=== PATIENT | female | born 1945 | race Caucasian/White ===

== ENCOUNTER → 2016-12-12 | Day surgery (SDC) | payer OTHER ==
[2016-12-11 12:36] LABS: BASOPHILS # (AUTO) 0.1 (0.0-0.1); BASOPHILS % 0.6 % (0.0-1.0); EOSINOPHILS # (AUTO) 0.1 (0.0-0.4); EOSINOPHILS % 0.6 % (0.0-6.0); HEMATOCRIT 42.6 % (34.2-44.1); HEMOGLOBIN 14.3 g/dL (12.0-16.0); LYMPHOCYTES % 22.7 % (18.0-39.1); MEAN CORPUSCULAR HEMOGLOBIN 28.5 pg (28-32); MEAN CORPUSCULAR HGB CONC 33.6 g/dL (31-35); MONOCYTES # (AUTO) 0.6 (0.2-0.8); MONOCYTES % 6.5 % (4.4-11.3); NEUTROPHILS # (AUTO) 6.2 (2.1-6.9); NEUTROPHILS % 69.3 % (38.7-80.0); PLATELET COUNT 334 x10e3/uL (140-360); RED BLOOD COUNT 5.01 x10e6/uL (3.6-5.1); RED CELL DISTRIBUTION WIDTH 15.7 % (11.7-14.4)
[~2016-12-12] MED LIST: AMLODIPINE BESY10 MG PO; HYDROCHLOROTHIA25 MG PO; LEVOTHYROXINE50 MCG PO; MONTELUKAST SOD10 MG PO; PROPOFOL IV EMULSION 10 MG/ML 50 ML VIAL ONE; SERTRALINE HCL100 MG PO
== END | disposition home or self-care (01) ==
LOC: OR 06:17
PROVIDERS: ATTEND Internal Medicine Gastroenterology
DX: K21.0 Gastro-esophageal reflux disease with esophagitis (principal); K29.50 Unspecified chronic gastritis without bleeding; K44.9 Diaphragmatic hernia without obstruction or gangrene; K58.9 Irritable bowel syndrome, unspecified; I10 Essential (primary) hypertension; J84.9 Interstitial pulmonary disease, unspecified; E66.9 Obesity, unspecified; F32.9 Major depressive disorder, single episode, unspecified; Z68.31 Body mass index [BMI] 31.0-31.9, adult; Z01.810 Encounter for preprocedural cardiovascular examination; Z01.812 Encounter for preprocedural laboratory examination; Z87.891 Personal history of nicotine dependence
CPT/HCPCS: 36415; 43239; 85025; 93005

== ENCOUNTER 2017-11-20 12:40 | Inpatient (IN) | payer OTHER ==
[~2017-11-20] VITALS: Ht 157.5 cm; Wt 81.8 kg
[~2017-11-20 12:40] MED LIST changes: -PROPOFOL IV EMULSION 10 MG/ML 50 ML VIAL ONE
--- NOTE | 2017-11-20 14:20 | Diagnostic Imaging Report ---
EXAM: XR CHEST 2 VIEWS DATE: 11/20/2017 1:11 PM INDICATION: Weakness, possible pneumonia COMPARISON: None FINDINGS: Lines and Tubes: None Heart and Mediastinum: Accentuated by low lung volumes. Lungs and Pleura: Low lung volumes, body habitus, and underpenetration limit evaluation. Scattered bilateral airspace opacities are present, most notably left mid/lower lung. Bones and Soft Tissues: Cholecystectomy clips. Cervical orthopedic hardware. IMPRESSION: 1. Suboptimal exam as above. 2. Scattered airspace opacities bilaterally, most focally noted in the left mid and lower lung. Findings likely represent multifocal pneumonia given history. Close radiographic follow-up recommended. Signed by: Dr. Danilo Gamboa MD on 11/20/2017 2:17 PM
[2017-11-20] MEDS ORDERED: ASPIRIN 81 MG CHEW TAB PO ONE (15:45)
[2017-11-20] MEDS ORDERED: VANCOMYCIN HCL 1GM/NS 250 ML BAG IV SCH (15:45)
[2017-11-20 16:08] LABS: BASOPHILS % 0.4 % (0.0-1.0); EOSINOPHILS # (AUTO) 0.3 (0.0-0.4); EOSINOPHILS % 2.2 % (0.0-6.0); HEMATOCRIT 37.3 % (34.2-44.1); HEMOGLOBIN 13.1 g/dL (12.0-16.0); LYMPHOCYTES % 17.5 % (18.0-39.1); MEAN CORPUSCULAR HEMOGLOBIN 29.9 pg (28-32); MEAN CORPUSCULAR HGB CONC 35.1 g/dL (31-35); MEAN CORPUSCULAR VOLUME 85.2 fL (81-99); MONOCYTES # (AUTO) 0.9 (0.2-0.8); MONOCYTES % 8.1 % (4.4-11.3); NEUTROPHILS % 71.4 % (38.7-80.0); PLATELET COUNT 348 x10e3/uL (140-360); RED BLOOD COUNT 4.38 x10e6/uL (3.6-5.1); RED CELL DISTRIBUTION WIDTH 14.3 % (11.7-14.4)
[2017-11-20 16:35] LABS: ALANINE AMINOTRANSFERASE 53 IU/L (0-55); ALBUMIN 4.1 g/dL (3.5-5.0); ALKALINE PHOSPHATASE 96 IU/L (40-150); ANION GAP 16.5 mmol/L (8-16); BLOOD UREA NITROGEN 9 mg/dL (7-26); BUN/CREATININE RATIO 14 (6-25); CALCIUM 9.8 mg/dL (8.4-10.2); CARBON DIOXIDE 30 mmol/L (22-29); CHLORIDE 89 mmol/L (98-107); CREATINE KINASE 285 IU/L (29-168); CREATININE, SERUM 0.66 mg/dL (0.57-1.11); EST GLOMERULAR FILTRATION RATE > 60 ML/MIN (60-); GLUCOSE 107 mg/dL (74-118); SODIUM 133 mmol/L (136-145)
[2017-11-20] MEDS: CEFEPIME HCL 1 GM VIAL IV SCH (16:41)
[2017-11-20] MEDS: VANCOMYCIN 1GM/NS 250 ML 250 ML IV SCH (16:41)
[2017-11-20 16:45] LABS: INR 0.9
[2017-11-20 16:46] LABS: PARTIAL THROMBOPLASTIN TIME 30.1 seconds (23.8-35.5)
[2017-11-20 16:51] LABS: POTASSIUM 2.5 mmol/L (3.5-5.1)
[2017-11-20] MEDS ORDERED: POTASSIUM CHLORIDE 20 MEQ TAB CR PO ONE (17:00)
[2017-11-20] MEDS ORDERED: POTASSIUM CHLORIDE 20MEQ/100ML 100 ML IV ONE ×2 (17:00→18:00)
[2017-11-20 17:10] LABS: BILIRUBIN,URINE 1+ (NEGATIVE); CLARITY,URINE HAZY (CLEAR); COLOR,URINE YELLOW (YELLOW); KETONES,URINE 1+ (NEGATIVE); LEUKOCYTE ESTERASE ,URINE 1+ (NEGATIVE); NITRITE,URINE NEGATIVE (NEGATIVE); PROTEIN,URINE DIPSTICK 1+ (NEGATIVE); URINE UROBILINOGEN 0.2 mg/dL (0.2 - 1)
[2017-11-20 17:11] LABS: BACTERIA,URINE MANY /HPF; EPITHELIAL CELLS,URINE FEW /LPF; TRANSITIONAL EPI CELLS,URINE FEW
[2017-11-20] MEDS: SODIUM CHLORIDE 0.9% 1000ML 1,000 ML IV SCH (18:31)
[2017-11-20 23:57] LABS: CREATINE KINASE 208 IU/L (29-168)
[2017-11-21] VITALS (8 sets, daily range): BP systolic 111–142; BP diastolic 53–71
[2017-11-21] MEDS: CEFEPIME HCL 1 GM VIAL IV SCH ×2 (04:48→15:41)
[2017-11-21] MEDS: SODIUM CHLORIDE 0.9% 1000ML 1,000 ML IV SCH (07:35)
[2017-11-21 07:48] LABS: ALANINE AMINOTRANSFERASE 34 IU/L (0-55); ALKALINE PHOSPHATASE 70 IU/L (40-150); ANION GAP 11.3 mmol/L (8-16); BLOOD UREA NITROGEN 7 mg/dL (7-26); BUN/CREATININE RATIO 13 (6-25); CALCIUM 8.5 mg/dL (8.4-10.2); CARBON DIOXIDE 27 mmol/L (22-29); CHLORIDE 99 mmol/L (98-107); CREATININE, SERUM 0.52 mg/dL (0.57-1.11); EST GLOMERULAR FILTRATION RATE > 60 ML/MIN (60-); GLUCOSE 100 mg/dL (74-118); POTASSIUM 3.3 mmol/L (3.5-5.1); SODIUM 134 mmol/L (136-145)
[2017-11-21 08:28] LABS: CREATINE KINASE 178 IU/L (29-168)
--- NOTE | 2017-11-21 12:49 | Diagnostic Imaging Report ---
EXAM: CT Chest without contrast 11/21/2017 11:24 AM INDICATION: Pulmonary fibrosis COMPARISON: Chest radiograph 11/20/17. TECHNIQUE: Chest was scanned utilizing a multidetector helical scanner from the lung apex through the level of the adrenal glands without administration of IV contrast. Coronal and sagittal reformations were obtained. Routine protocol was performed. IV CONTRAST: None. RADIATION DOSE: Total DLP: 397.5 mGy*cm Estimated effective dose: (DLP x 0.014 x size factor) mSv COMPLICATIONS: None FINDINGS: LINES/ TUBES: None. LUNGS AND AIRWAYS: The central airways are patent. There are bilateral extensive ground glass opacities, predominately peripherally, and most pronounced in the lower lobes, left greater than right. There is associated traction bronchiectasis. There is likely early honeycombing in the lingula. Overall lung volumes are low. Diffuse opacity limits evaluation for lung nodule. PLEURA: The pleural spaces are clear. HEART AND MEDIASTINUM: The thyroid gland is normal. Mildly prominent mediastinal lymph nodes measuring up to 1 cm short axis in the right paratracheal station, likely reactive. Scattered coronary and aortic atherosclerotic changes. UPPER ABDOMEN: Limited non-contrast views of the upper abdomen demonstrate diffuse fatty liver. Status post cholecystectomy. The spleen is unremarkable. BONES: No acute bony abnormality. SOFT TISSUES: Unremarkable. IMPRESSION: Bilateral lower lobe predominant ground glass opacities with associated traction bronchiectasis, and early honeycombing in the lingula. Findings are suggestive of interstitial lung disease, most likely fibrotic NSIP. Signed by: Dr. Laverne Bedoya MD on 11/21/2017 12:46 PM
--- NOTE | 2017-11-21 12:59 | Consultation ---
DATE OF CONSULTATION: November 21, 2017 PULMONARY CONSULTATION REASON FOR CONSULT: Well known patient to me for pulmonary fibrosis. HPI: Ms. Medellin is a 72-year-old female. She is my office patient for last 2 years. She has been diagnosed with idiopathic pulmonary fibrosis. I had an extensive workup including the autoimmune workup and other workup done. She was also referred for transplant evaluation and has been declined. Discussion was done with her about antifibrotic treatment with pirfenidone and nintedanib, and she declined that option as well. She is on home oxygen 5 liters round the clock. She was in her usual state of health up until a week ago when her suddenly in the home and since then she was feeling short of breath, but the night before the admission, she started having chills and fever, so she was brought into the emergency room. She denies any complaints of chest pain, nausea, vomiting. Her breathing is better. Fever and chills have resolved as well. Chest x-ray in the emergency room showed bilateral opacities and low lung volumes. REVIEW OF SYSTEMS GENERAL: Denies any fever or chills. HEAD: Denies any head trauma. ENT: Denies any earaches. CVS: Denies any chest pain. RESPIRATORY: Shortness of breath. GI: Denies any nausea or vomiting. The rest of the review of systems are negative except as in HPI. PAST MEDICAL HISTORY: Idiopathic pulmonary fibrosis, hypertension, and depression. PAST SURGICAL HISTORY: None. FAMILY AND SOCIAL HISTORY: Patient never smoked. She was living with her , now she is by herself. PHYSICAL EXAM VITAL SIGNS: Temperature 99.3, pulse is 68, blood pressure 130/60, respiratory rate of 18, O2 sat 98% on 4 liters nasal cannula. HEENT: Head atraumatic, normocephalic. NECK: Supple. CHEST: Few crackles on the bases, otherwise clear to auscultation. No wheezing. HEART: S1, S2 audible. ABDOMEN: Soft, nontender, and nondistended. EXTREMITIES: No clubbing, cyanosis, or edema. NEUROLOGICAL: She is awake and alert. Following commands. Responding to questions appropriately. Moving all 4 extremities. Strength 5/5 in both upper and lower extremities. LABS: White count of 11,000, hemoglobin 13.1, platelets 348. Chemistry; sodium 134, potassium 3.3, potassium was 2.5 yesterday, BUN 7, creatinine 0.5. CK was 178 and 208. ASSESSMENT: Ms. Medellin is a 72-year-old female. She is a well known patient to me. She has idiopathic pulmonary fibrosis, now seems like that she probably has superimposed pneumonia versus exacerbation of idiopathic pulmonary fibrosis. PLAN 1. I agree with cefepime and vancomycin. I will also start the patient on IV Solu-Medrol. 2. CT of the chest without contrast will be done as well. Physical therapy evaluation and treatment. Continue the patient on oxygen. Thank you for this consult. Job#: [id number] LPA
[2017-11-21] MEDS: METHYLPREDNISOLONE SOD SUCC 40 MG/ML VIAL IV SCH ×2 (15:41→22:25)
[2017-11-21] MEDS: VANCOMYCIN 1GM/NS 250 ML 250 ML IV SCH (15:59)
[2017-11-21] MEDS ORDERED: ALBUTEROL/IPRATROPIUM 3 ML NEB NEB ONE (16:15)
[2017-11-21] MEDS ORDERED: ACETYLCYSTEINE 200 MG/ML 4ML VIAL INH ONE (16:25)
[2017-11-21] MEDS ORDERED: ALPRAZOLAM 0.25 MG TAB PO ONE (16:45)
[2017-11-21] MEDS: ALBUTEROL/IPRATROPIUM 3 ML NEB NEB SCH (19:35)
[2017-11-21] MEDS: SERTRALINE HCL 100 MG TAB PO SCH (20:51)
[2017-11-22] VITALS (8 sets, daily range): BP systolic 134–158; BP diastolic 61–72
[2017-11-22] MEDS: ALBUTEROL/IPRATROPIUM 3 ML NEB NEB SCH ×4 (01:15→21:15)
[2017-11-22] MEDS: CEFEPIME HCL 1 GM VIAL IV SCH (03:43)
[2017-11-22] MEDS: METHYLPREDNISOLONE SOD SUCC 40 MG/ML VIAL IV SCH ×3 (05:42→22:00)
[2017-11-22] MEDS ORDERED: ACETAMINOPHEN 325 MG TAB PO PRN (10:45)
[2017-11-22] MEDS ORDERED: HYDROCODONE/APAP 5MG-325MG TAB PO PRN (10:45)
[2017-11-22] MEDS ORDERED: ALBUTEROL/IPRATROPIUM 3 ML NEB NEB PRN (10:45)
[2017-11-22] MEDS ORDERED: ONDANSETRON HCL INJ 2 MG/ML VIAL IV PRN (10:45)
[2017-11-22] MEDS ORDERED: MORPHINE SULFATE INJ 4 MG/ML INJ IV PRN (11:30)
[2017-11-22] MEDS: AZITHROMYCIN 500MG/NS 250 ML 250 ML IV SCH (12:00)
[2017-11-22] MEDS: PIPER-TAZ 3.375 GM 50 ML IV SCH ×2 (13:00→21:30)
[2017-11-22] MEDS: SENNOSIDES 8.6 MG TAB PO SCH (17:00)
[2017-11-22] MEDS: SERTRALINE HCL 100 MG TAB PO SCH (21:35)
[2017-11-23] VITALS (50 sets, daily range): BP systolic 112–176; BP diastolic 57–97
[2017-11-23] MEDS: ALBUTEROL/IPRATROPIUM 3 ML NEB NEB SCH ×4 (00:05→19:10)
[2017-11-23] MEDS: PIPER-TAZ 3.375 GM 50 ML IV SCH ×3 (03:44→20:07)
[2017-11-23] MEDS: METHYLPREDNISOLONE SOD SUCC 40 MG/ML VIAL IV SCH ×3 (05:54→21:54)
[2017-11-23] MEDS: ALPRAZOLAM 0.25 MG TAB PO PRN ×2 (05:54→16:10)
[2017-11-23 06:47] LABS: BASOPHILS % 0.1 % (0.0-1.0); HEMATOCRIT 34.1 % (34.2-44.1); HEMOGLOBIN 11.5 g/dL (12.0-16.0); LYMPHOCYTES # (AUTO) 0.5 (1.0-3.2); LYMPHOCYTES % 2.2 % (18.0-39.1); MEAN CORPUSCULAR HEMOGLOBIN 29.9 pg (28-32); MEAN CORPUSCULAR HGB CONC 33.7 g/dL (31-35); MEAN CORPUSCULAR VOLUME 88.6 fL (81-99); MONOCYTES # (AUTO) 1.1 (0.2-0.8); MONOCYTES % 5.2 % (4.4-11.3); PLATELET COUNT 338 x10e3/uL (140-360); RED BLOOD COUNT 3.85 x10e6/uL (3.6-5.1); RED CELL DISTRIBUTION WIDTH 14.8 % (11.7-14.4)
[2017-11-23 07:04] LABS: BLOOD UREA NITROGEN 12 mg/dL (7-26); BUN/CREATININE RATIO 20 (6-25); CALCIUM 9.2 mg/dL (8.4-10.2); CARBON DIOXIDE 26 mmol/L (22-29); CHLORIDE 103 mmol/L (98-107); EST GLOMERULAR FILTRATION RATE > 60 ML/MIN (60-); GLUCOSE 160 mg/dL (74-118); POTASSIUM 3.1 mmol/L (3.5-5.1)
[2017-11-23 07:14] LABS: ANION GAP 16.1 mmol/L (8-16)
[2017-11-23 07:15] LABS: SODIUM 142 mmol/L (136-145)
[2017-11-23] MEDS: MORPHINE SULFATE 2 MG/ML SYR IV PRN ×3 (07:20→21:27)
[2017-11-23 08:03] LABS: LYMPHOCYTES % (MANUAL) 9 % (19-48); MONOCYTES % (MANUAL) 7 % (3.4-9.0); NEUTROPHILS % (MANUAL) 84 % (40-74); PLATELET ESTIMATE ADEQUATE; PLATELET MORPHOLOGY COMMENT NORMAL; RBC MORPHOLOGY COMMENT NORMAL
[2017-11-23] MEDS: SENNOSIDES 8.6 MG TAB PO SCH ×2 (09:00→17:00)
[2017-11-23] MEDS ORDERED: DEXMEDETOMIDINE HCL 200 MCG in SODIUM CHLORIDE 0.9% 50ML 48 ML IV PRN (12:00)
[2017-11-23] MEDS ORDERED: DEXMEDETOMIDINE 200MCG/NS 50ML 50 ML IV PRN (12:30)
[2017-11-23] MEDS: AZITHROMYCIN 500MG/NS 250 ML 250 ML IV SCH (13:17)
[2017-11-23] MEDS: DEXMEDETOMIDINE 200MCG/NS 50ML 50 ML IV PRN ×2 (13:22→20:00)
[2017-11-23] MEDS: SOD CHL 0.45%/POT CHL 20MEQ 1,000 ML IV SCH (14:26)
[2017-11-23] MEDS: SERTRALINE HCL 100 MG TAB PO SCH (21:27)
[2017-11-24] VITALS (73 sets, daily range): BP systolic 92–194; BP diastolic 43–128
[2017-11-24] MEDS: DEXMEDETOMIDINE 200MCG/NS 50ML 50 ML IV PRN ×6 (00:32→22:10)
[2017-11-24] MEDS: ALPRAZOLAM 0.25 MG TAB PO PRN ×2 (01:24→07:24)
[2017-11-24] MEDS: SOD CHL 0.45%/POT CHL 20MEQ 1,000 ML IV SCH ×2 (01:27→11:47)
[2017-11-24] MEDS: ALBUTEROL/IPRATROPIUM 3 ML NEB NEB SCH ×4 (02:00→19:10)
[2017-11-24] MEDS: PIPER-TAZ 3.375 GM 50 ML IV SCH ×3 (04:28→20:03)
[2017-11-24 04:42] LABS: BASOPHILS % 0.1 % (0.0-1.0); HEMATOCRIT 32.3 % (34.2-44.1); HEMOGLOBIN 11.1 g/dL (12.0-16.0); LYMPHOCYTES # (AUTO) 0.7 (1.0-3.2); LYMPHOCYTES % 3.7 % (18.0-39.1); MEAN CORPUSCULAR HEMOGLOBIN 29.7 pg (28-32); MEAN CORPUSCULAR HGB CONC 34.4 g/dL (31-35); MEAN CORPUSCULAR VOLUME 86.4 fL (81-99); MONOCYTES % 5.3 % (4.4-11.3); NEUTROPHILS # (AUTO) 16.4 (2.1-6.9); NEUTROPHILS % 90.2 % (38.7-80.0); PLATELET COUNT 294 x10e3/uL (140-360); RED BLOOD COUNT 3.74 x10e6/uL (3.6-5.1); RED CELL DISTRIBUTION WIDTH 14.7 % (11.7-14.4)
[2017-11-24] MEDS: MORPHINE SULFATE 2 MG/ML SYR IV PRN ×3 (05:09→22:51)
[2017-11-24 05:13] LABS: ANION GAP 17.6 mmol/L (8-16); BLOOD UREA NITROGEN 16 mg/dL (7-26); BUN/CREATININE RATIO 27 (6-25); CARBON DIOXIDE 23 mmol/L (22-29); CHLORIDE 105 mmol/L (98-107); CREATININE, SERUM 0.59 mg/dL (0.57-1.11); EST GLOMERULAR FILTRATION RATE > 60 ML/MIN (60-); GLUCOSE 166 mg/dL (74-118); MAGNESIUM 2.3 MG/DL (1.3-2.1); PHOSPHORUS 1.8 MG/DL (2.3-4.7); POTASSIUM 3.6 mmol/L (3.5-5.1); SODIUM 142 mmol/L (136-145)
[2017-11-24] MEDS: METHYLPREDNISOLONE SOD SUCC 40 MG/ML VIAL IV SCH (05:43)
[2017-11-24] MEDS: SENNOSIDES 8.6 MG TAB PO SCH ×2 (08:08→14:49)
[2017-11-24] MEDS: LORAZEPAM INJ 2 MG/ML VIAL IV PRN ×2 (11:40→21:32)
[2017-11-24] MEDS: AZITHROMYCIN 500MG/NS 250 ML 250 ML IV SCH (11:47)
[2017-11-24] MEDS ORDERED: METHYLPREDNISOLONE SOD SUCC 40 MG/ML VIAL IV SCH (21:00)
[2017-11-24] MEDS ORDERED: HEPARIN SOD (PORCINE) 5,000 UNIT/ML VIAL SC SCH (21:00)
[2017-11-24] MEDS: SERTRALINE HCL 100 MG TAB PO SCH (21:00)
[2017-11-25 00:20] VITALS: BP 118/96
[2017-11-25] MEDS: ALBUTEROL/IPRATROPIUM 3 ML NEB NEB SCH (01:00)
[2017-11-25 01:12] VITALS: BP 132/96
[2017-11-25] MEDS: DEXMEDETOMIDINE 200MCG/NS 50ML 50 ML IV PRN (01:18)
[2017-11-25 01:20] VITALS: BP 114/49
[2017-11-25] MEDS ORDERED: LORAZEPAM INJ 2 MG/ML VIAL IV PRN (01:30)
[2017-11-25] MEDS ORDERED: MORPHINE SULFATE 2 MG/ML SYR IV PRN (01:30)
[2017-11-25 02:20] VITALS: BP_SYST 120
[2017-11-25 02:35] VITALS: BP 155/45
[2017-11-25 03:11] VITALS: BP 83/64
[2017-11-25] MEDS: PIPER-TAZ 3.375 GM 50 ML IV SCH (04:00)
--- OUTSIDE RECORDS SUMMARY | 2017-11-26 12:40 | XMS REPORT | Clinical Summary ---
Author Author [facility] Organization [facility] Address Unknown Phone Unavailable Care Team Providers Care Machine Tool Technician Instructor Name Role Phone Jesus Abad MD PCP Allergies Active Allergy Reactions Severity Noted Date Comments Hydromorphone Hives 12/04/2016 Stinging, itching Current Medications Prescription Sig. Disp. Refills Start End Date Status Date amLODIPine (NORVASC) 10 Take 10 mg by mouth Active mg tablet daily. hydroCHLOROthiazide Take 25 mg by mouth Active (HYDRODIURIL) 25 MG daily. tablet levothyroxine (SYNTHROID, Take 25 mcg by mouth Active LEVOXYL) 25 mcg tablet every morning. sertraline (ZOLOFT) 100 Take 100 mg by mouth Active MG tablet daily. esomeprazole (NexIUM) 40 Take 1 capsule (40 mg 30 capsule 2 09/25/19 12/18/19 Discontin MG capsuleIndications: total) by mouth daily 17 17 ued Hoarseness of voice, before breakfast. Chronic cough magnesium oxide (MAG-OX) Take by mouth. 12/06/19 Discontin 400 mg tablet 17 ued albuterol (PROAIR HFA) 90 Inhale 2 puffs every 4 12/18/19 Discontin mcg/actuation inhaler (four) hours as needed 17 ued for wheezing. calcium carbonate (TUMS) Chew 1 tablet as needed 12/18/19 Discontin 200 mg calcium (500 mg) for indigestion or 17 ued chewable tablet heartburn. maddison Take by mouth daily. 12/18/19 Discontin [id number] 17 ued (CITRACAL PLUS MAGNESIUM) 250-40-125 mg-mg-unit tablet Active Problems Problem Noted Date ILD (interstitial lung disease) (HCC) 12/17/2016 HTN (hypertension) 12/17/2016 Depression 12/17/2016 GERD (gastroesophageal reflux disease) 12/17/2016 Fibrosis of lung (HCC) 12/04/2016 Sensorineural hearing loss, bilateral 10/31/2016 Hoarseness of voice 09/24/2016 Acquired hypothyroidism 09/24/2016 Chronic cough 09/24/2016 Encounters Date Type Specialty Care Team Description 04/12/2017 Telephone Transplant Cathy Huff MA Pt records 12/18/2016 Telephone Transplant Venancio Griffith MA Requesting Office Visit Notes 12/17/2016 Hospital Transplant Noble Gan MD Encounter 12/17/2016 Hospital Transplant Diogenes Mancilla MD Interstitial lung disease Encounter (Primary Dx); Shortness of breath; Muscular deconditioning; KLARISSA (obstructive sleep apnea) 12/17/2016 [facility] Radiology Noble Gan MD IPF (idiopathic pulmonary Encounter fibrosis) 12/17/2016 [facility] Pulmonology Noble Gan MD IPF (idiopathic pulmonary Encounter fibrosis) 12/17/2016 Hospital Transplant Noble Gan MD IPF (idiopathic pulmonary Encounter fibrosis) 12/13/2016 Telephone Transplant Jossie Billingsley [facility] - [facility] - Lung Eval Approved 12/05/2016 Telephone Transplant Alissa James RN Follow-up 12/04/2016 Telephone Transplant Charisse Ruggiero RN Referral - Lung Txp after 11/19/2016 Family History Medical History Relation Name Comments Diabetes Father Heart attack Father Heart failure Father Kidney failure Father Heart failure Maternal Grandfather COPD Mother Relation Name Status Comments Father Maternal Grandfather Mother Social History Tobacco Use Types Packs/Day Years Used Date Former Smoker Cigarettes 0.5 5 Quit: 1980 Smokeless Tobacco: Never Used Comments: smoked for 5 years in her 20s Alcohol Use Drinks/Week oz/Week Comments No Sex Assigned at Date Recorded Not on file Last Filed Vital Signs Vital Sign Reading Time Taken Blood Pressure 150/81 12/17/2016 12:41 PM CLIENT TECHNICAL PROFESSIONAL Pulse 87 12/17/2016 12:41 PM CLIENT TECHNICAL PROFESSIONAL Temperature 36.1 C (97 F) 12/17/2016 12:41 PM CLIENT TECHNICAL PROFESSIONAL Respiratory Rate 18 12/17/2016 12:41 PM CLIENT TECHNICAL PROFESSIONAL Oxygen Saturation 97% 12/17/2016 12:41 PM CLIENT TECHNICAL PROFESSIONAL Inhaled Oxygen - - Concentration Weight 76.6 kg (168 lb 14.4 oz) 12/17/2016 12:41 PM CLIENT TECHNICAL PROFESSIONAL Height 157.5 cm (5' 2") 12/17/2016 12:41 PM CLIENT TECHNICAL PROFESSIONAL Body Mass Index 30.89 12/17/2016 12:41 PM CLIENT TECHNICAL PROFESSIONAL Plan of Treatment Health Maintenance Due Date Last Done Comments BREAST CANCER SCREENING 1997 COLON CANCER SCREENING 1997 SHINGRIX VACCINE (#1) 1997 ZOSTER VACCINE 2007 PNEUMOCOCCAL 01/23/2012 POLYSACCHARIDE VACCINE AGE 65 AND OVER PNEUMOCOCCAL-13 01/23/2012 INFLUENZA VACCINE 09/11/2017 Procedures Procedure Name Priority Date/Time Associated Diagnosis Comments ARTERIAL BLOOD GAS, Routine 12/17/2016 PULMONARY FUNC DEPT 12:45 PM [address]CHNICAL PROFESSIONAL [address] CHEST WO CONTRAST Routine 12/17/2016 IPF (idiopathic pulmonary Results for this 11:45 AM CLIENT TECHNICAL PROFESSIONAL fibrosis) procedure are in the results section. NICOTINE AND METABOLITES, Routine 12/17/2016 Results for this SERUM 8:00 AM CLIENT TECHNICAL PROFESSIONAL procedure are in the results section. ZZESTIMATED GFR Routine 12/17/2016 Results for this 8:00 AM CLIENT TECHNICAL PROFESSIONAL procedure are in the results section. COMPREHENSIVE METABOLIC Routine 12/17/2016 Results for this PANEL 8:00 AM CLIENT TECHNICAL PROFESSIONAL procedure are in the results section. HC COMPLETE BLD COUNT Routine 12/17/2016 Results for this W/AUTO DIFF 8:00 AM CLIENT TECHNICAL PROFESSIONAL procedure are in the results section. URINE DRUGS OF ABUSE Routine 12/17/2016 IPF (idiopathic pulmonary Results for this SCREEN 8:00 AM CLIENT TECHNICAL PROFESSIONAL fibrosis) procedure are in the results section. ALCOHOL LEVEL, BLOOD Routine 12/17/2016 IPF (idiopathic pulmonary Results for this 8:00 AM CLIENT TECHNICAL PROFESSIONAL fibrosis) procedure are in the results section. after 11/19/2016 Results * CT Chest Wo Contrast (12/17/2016 11:45 AM) Narrative Performed At CT CHEST WO CONTRAST RADIANT CLINICAL INDICATION: J84.112 Idiopathic pulmonary fibrosis, post lung follow up TECHNIQUE:Multidetector CT imaging of the chest was performed without intravenous contrast with automated exposure control and/or iterative reconstruction techniques to radiation dose. COMPARISON:None FINDINGS: LUNGS:There are moderate areas of reticular nodular infiltration in the lungs slightly more prominent at the lung bases. Findings are consistent with chronic interstitial disease and probable usual interstitial pneumonitis. No asbestos related plaques are identified. There is no pulmonary nodule or consolidation. No distinct honeycombing is visualized. Prone imaging is noncontributory. PLEURA:No pleural effusion or pneumothorax. LYMPH NODES:No pathological adenopathy in the maxine, axilla or mediastinum. CARDIOVASCULAR:The heart is normal in size without effusion. Aorta and pulmonary arteries are unremarkable. MEDIASTINUM:No mass or hematoma. Trachea and central airways are patent. CHEST WALL:Unremarkable. BONES: Mild degenerative changes are present. Changes of anterior cervical fusion noted. UPPER ABDOMEN:Cholecystectomy noted. No acute abnormality. IMPRESSION: Interstitial changes consistent with usual interstitial pneumonitis/pulmonary fibrosis. Thank you for allowing us to participate in the care of your patient. [facility]-[id number] Procedure Note Hm Interface, Radiology Results Incoming - 12/17/2016 1:16 PM CLIENT TECHNICAL PROFESSIONAL CT CHEST WO CONTRAST CLINICAL INDICATION: J84.112 Idiopathic pulmonary fibrosis, post lung follow up TECHNIQUE: Multidetector CT imaging of the chest was performed without intravenous contrast with automated exposure control and/or iterative reconstruction techniques to radiation dose. COMPARISON: None FINDINGS: LUNGS: There are moderate areas of reticular nodular infiltration in the lungs slightly more prominent at the lung bases. Findings are consistent with chronic interstitial disease and probable usual interstitial pneumonitis. No asbestos related plaques are identified. There is no pulmonary nodule or consolidation. No distinct honeycombing is visualized. Prone imaging is noncontributory. PLEURA: No pleural effusion or pneumothorax. LYMPH NODES: No pathological adenopathy in the maxine, axilla or mediastinum. CARDIOVASCULAR: The heart is normal in size without effusion. Aorta and pulmonary arteries are unremarkable. MEDIASTINUM: No mass or hematoma. Trachea and central airways are patent. CHEST WALL: Unremarkable. BONES: Mild degenerative changes are present. Changes of anterior cervical fusion noted. UPPER ABDOMEN: Cholecystectomy noted. No acute abnormality. IMPRESSION: Interstitial changes consistent with usual interstitial pneumonitis/pulmonary fibrosis. Thank you for allowing us to participate in the care of your patient. [facility]-[id number] Performing Organization Address City/State/Zipcode Phone Number [facility] [address] [place] [address] * Nicotine and metabolites, serum (12/17/2016 8:00 AM) Nicotine <2.0 0.0 - 2.0 ng/mL [facility] DEPARTMENT OF PATHOLOGY AND GENOMIC MEDICINE Cotinine <2.0 0.0 - 2.0 ng/mL [facility] DEPARTMENT OF PATHOLOGY AND GENOMIC MEDICINE [id number] <5.0 0.0 - 5.0 ng/mL [facility] DEPARTMENT OF Comment: PATHOLOGY AND This test was developed and GENOMIC MEDICINE its performance characteristics determined by the Department of Pathology and Genomic Medicine, [facility]. Serum nicotine and its metabolites cotinine and [id number] are tested by HPLC tandem mass spectrometry. It has not been cleared or approved by FDA. The laboratory is regulated under CLIA as qualified to perform high-complexity testing. This test is used for clinical purposes. It should not be regarded as investigational or for research. Specimen Blood Performing Organization Address [facility] [place] [place] [address] PATHOLOGY AND [facility] MED[facility] * Estimated GFR (12/17/2016 8:00 AM) GFR Non Af Amer 83 mL/min/1.73 m2 [facility] DEPARTMENT OF PATHOLOGY AND GENOMIC MEDICINE GFR Af Amer >90 mL/min/1.73 m2 [facility] DEPARTMENT OF Comment: PATHOLOGY AND Chronic kidney disease: <60 GENOMIC MEDICINE mL/min/1.73m2 Kidney failure: <15 mL/min/1.73m2 The estimated GFR is calculated from the IDMS-traceable Modification of Diet in Renal Disease Equation. The accuracy of the calculation is poor when the creatinine is normal. Calculated values >90 mL/min/1.73m2 are not reported. This equation has not been validated in children (<18 years), women, the elderly (>70 years), or ethnic groups other than Caucasians and Americans. Specimen Plasma specimen Performing Organization Address [facility] Phone Number [address] [address] PATHOLOGY AND [employer] MEDICINE * Urine drugs of abuse screen (12/17/2016 8:00 AM) Amphetamine screen, urine Negative [facility] DEPARTMENT OF PATHOLOGY AND GENOMIC MEDICINE Barbiturate screen, urine Negative [facility] DEPARTMENT OF PATHOLOGY AND GENOMIC MEDICINE Benzodiazepine screen, Negative [facility] DEPARTMENT OF urine PATHOLOGY AND GENOMIC MEDICINE Cannabinoid screen, urine Negative [facility] DEPARTMENT OF PATHOLOGY AND GENOMIC MEDICINE Cocaine screen, urine Negative [facility] DEPARTMENT OF PATHOLOGY AND GENOMIC MEDICINE Methadone metabolite Negative [facility] DEPARTMENT OF (EDDP), urine PATHOLOGY AND GENOMIC MEDICINE Opiates screen, urine Negative [facility] DEPARTMENT OF PATHOLOGY AND GENOMIC MEDICINE Oxycodone screen, urine Negative [facility] DEPARTMENT OF PATHOLOGY AND GENOMIC MEDICINE Phencyclidine screen, Negative [facility] DEPARTMENT OF urine PATHOLOGY AND GENOMIC MEDICINE Tricyclic screen, urine Negative [facility] DEPARTMENT OF Comment: PATHOLOGY AND Drug screen minimum GENOMIC MEDICINE concentration of detectability Amphetamines 1000 ng/mL Barbiturates 200 ng/mL Benzodiazepines 300 ng/mL Cocaine 300 ng/mL Methadone 300 ng/mL Opiates 300 ng/mL Oxycodone 300 ng/mL Phencyclidine 25 ng/mL Cannabinoids 50 ng/mL Tricyclics 1000 ng/mL Negative test results indicates presumptive evidence of lack of clinically significant drug concentration in this urine specimen. Positive test results are presumptive evidence of clinically significant drug concentration in this urine specimen. Testing performed for medical purposes only. Specimen Urine Performing Organization Address City/State/Zipcode Phone Number [facility] DEPARTMENT OF [address] [place] [address] PATHOLOGY AND GENOMIC MEDICINE * CBC with platelet and differential (12/17/2016 8:00 AM) WBC 8.57 4.50 - 11.00 k/uL [facility] DEPARTMENT OF PATHOLOGY AND GENOMIC MEDICINE RBC 4.84 4.20 - 5.50 m/uL [facility] DEPARTMENT OF PATHOLOGY AND GENOMIC MEDICINE HGB 13.6 12.0 - 16.0 g/dL [facility] DEPARTMENT OF PATHOLOGY AND GENOMIC MEDICINE HCT 40.7 37.0 - 47.0 % [facility] DEPARTMENT OF PATHOLOGY AND GENOMIC MEDICINE MCV 84.1 82.0 - 100.0 fL [facility] DEPARTMENT OF PATHOLOGY AND GENOMIC MEDICINE MCH 28.1 27.0 - 34.0 pg [facility] DEPARTMENT OF PATHOLOGY AND GENOMIC MEDICINE MCHC 33.4 31.0 - 37.0 g/dL [facility] DEPARTMENT OF PATHOLOGY AND GENOMIC MEDICINE RDW - SD 47.4 37.0 - 55.0 fL [facility] DEPARTMENT OF PATHOLOGY AND GENOMIC MEDICINE MPV 10.5 8.8 - 13.2 fL [facility] DEPARTMENT OF PATHOLOGY AND GENOMIC MEDICINE Platelet count 302 150 - 400 k/uL [facility] DEPARTMENT OF PATHOLOGY AND GENOMIC MEDICINE Nucleated RBC 0.00 /100 WBC [facility] DEPARTMENT OF PATHOLOGY AND GENOMIC MEDICINE Neutrophils 68.2 39.0 - 69.0 % [facility] DEPARTMENT OF PATHOLOGY AND GENOMIC MEDICINE Lymphocytes 22.2 (L) 25.0 - 45.0 % [facility] DEPARTMENT OF PATHOLOGY AND GENOMIC MEDICINE Monocytes 7.4 0.0 - 10.0 % [facility] DEPARTMENT OF PATHOLOGY AND GENOMIC MEDICINE Eosinophils 1.1 0.0 - 5.0 % [facility] DEPARTMENT OF PATHOLOGY AND GENOMIC MEDICINE Basophils 0.7 0.0 - 1.0 % [facility] DEPARTMENT OF PATHOLOGY AND GENOMIC MEDICINE Immature granulocytes 0.4Comment: "Immature 0.0 - 1.0 % [facility] DEPARTMENT OF granulocytes" (promyelocytes, PATHOLOGY AND myelocytes, metamyelocytes) GENOMIC MEDICINE Performing Organization Address City/[facility] Phone Number [address] [address] PATHOLOGY AND GENOMIC MEDICINE * Alcohol level, blood (12/17/2016 8:00 AM) Alcohol None Detected mg/dL [facility] DEPARTMENT OF Comment: PATHOLOGY AND Normal GENOMIC MEDICINE None Detected Legal Intoxication in [place]80 mg/dL (0.08%) - Whole Blood Toxic Concentration 200 mg/dL (0.2%) Potentially Fatal3 50 - 500 mg/dL (0.35 - 0.5%) Alcohol percent None Detected % [facility] DEPARTMENT OF PATHOLOGY AND GENOMIC MEDICINE Specimen Plasma specimen Performing Organization Address [facility] Phone Number [address] [address] PATHOLOGY AND GENOMIC MEDICINE * Comprehensive metabolic panel (12/17/2016 8:00 AM) Sodium 141 135 - 148 mEq/L [facility] DEPARTMENT OF PATHOLOGY AND GENOMIC MEDICINE Potassium 3.5 3.5 - 5.0 mEq/L [facility] DEPARTMENT OF PATHOLOGY AND GENOMIC MEDICINE Chloride 97 (L) 98 - 112 mEq/L [facility] DEPARTMENT OF PATHOLOGY AND GENOMIC MEDICINE CO2 29 24 - 31 mEq/L [facility] DEPARTMENT OF PATHOLOGY AND GENOMIC MEDICINE Anion gap 15 7 - 15 mEq/L [facility] DEPARTMENT OF Comment: PATHOLOGY AND Starting from May GENOMIC MEDICINE , anion gap calculation no longer incorporates potassium. Please note the change. BUN 10 8 - 23 mg/dL [facility] DEPARTMENT OF PATHOLOGY AND GENOMIC MEDICINE Creatinine 0.7 0.5 - 0.9 mg/dL [facility] DEPARTMENT OF PATHOLOGY AND GENOMIC MEDICINE Glucose 102 (H) 65 - 99 mg/dL [facility] DEPARTMENT OF PATHOLOGY AND GENOMIC MEDICINE Calcium 9.5 8.8 - 10.2 mg/dL [facility] DEPARTMENT OF PATHOLOGY AND GENOMIC MEDICINE Protein 7.9 6.3 - 8.3 g/dL [facility] DEPARTMENT OF Comment: PATHOLOGY AND GENOMIC MEDICINE 4.6-7.0 g/dL 1 week 4.4-7.6 g/dL 7 months-1year 5.1-7.3 g/dL 1-2 years5.6-7 .5 g/dL >3 years6.0-8 .0 g/dL 18-150 6.3-8.3 g/dL Albumin 3.8 3.5 - 5.0 g/dL [facility] DEPARTMENT OF PATHOLOGY AND GENOMIC MEDICINE A/G ratio 0.9 0.7 - 3.8 [facility] DEPARTMENT OF PATHOLOGY AND GENOMIC MEDICINE Alkaline phosphatase 103 35 - 104 U/L [facility] DEPARTMENT OF PATHOLOGY AND GENOMIC MEDICINE AST 35 10 - 35 U/L [facility] DEPARTMENT OF PATHOLOGY AND GENOMIC MEDICINE ALT 25 5 - 50 U/L [facility] DEPARTMENT OF PATHOLOGY AND GENOMIC MEDICINE Total bilirubin 0.3 0.0 - 1.2 mg/dL [facility] DEPARTMENT OF PATHOLOGY AND GENOMIC MEDICINE Specimen Plasma specimen Performing Organization Address City/State/[facility] Phone Number [facility] DEPARTMENT [address] [address] PATHOLOGY AND GENOMIC MEDICINE after 11/19/2016 Insurance Payer Benefit Subscriber ID Type Phone Address Plan / Group [employer] xxxxxxxxx [facility] TAMMIE CAPPS Transplant Self 1945 Home: [id number] [place] [address]
--- OUTSIDE RECORDS SUMMARY | 2017-11-26 12:40 | XMS REPORT | Clinical Summary ---
Author Author [facility] Address Unknown Phone Unavailable Care Team Providers Care Dust Collector Name Role Phone PCP Unavailable Allergies Not on File Current Medications Not on file Active Problems Not on file Encounters Date Type Specialty Care Team Description 12/21/2016 Telephone Transplant Cameron You RN Lung Transplant Pre-evaluation after 11/19/2016 Social History Tobacco Use Types Packs/Day Years Used Date Never Assessed Sex Assigned at Date Recorded Not on file Last Filed Vital Signs Not on file Plan of Treatment Not on file Results Not on fileafter 11/19/2016
--- OUTSIDE RECORDS SUMMARY | 2017-11-26 12:40 | XMS REPORT ---
Author Author Yolanda Berrios [facility] [employer] Address Unknown Phone Unavailable Care Team Providers Care Brand Specialist Name Role Phone Yolanda Berrios Unavailable Allergies No Known Allergies Problems Problem Type Condition Code Onset Dates Condition Status Problem Cough R05 Active Problem Idiopathic pulmonary fibrosis J84.112 Active Medications No Known Medications Results No Known Results Summary Purpose eClinicalWorks Submission
--- OUTSIDE RECORDS SUMMARY | 2017-11-26 12:40 | XMS REPORT ---
Author Author Yolanda Berrios [facility] eClinicalWorks Address Unknown Phone Unavailable Care Team Providers Care Tinsmith Helper Name Role Phone Yolanda Berrios CP Unavailable Allergies, Adverse Reactions, Alerts Substance Reaction Event Type Dilaudid itching Drug Allergy Problems Problem Type Condition Code Onset Dates Condition Status Problem Cough R05 Active Assessment Idiopathic pulmonary fibrosis J84.112 Active Problem Idiopathic pulmonary fibrosis J84.112 Active Assessment Cough R05 Active Medications Medication Code System Code Instructions Start Date End Date Status Dosage Hydrochlorothiazide ND 26402299642 25 MG Orally Three times a Week Active 1 tablet in the morning Sertraline HCl ND 69441672548 100 MG Orally Once a day Active 1 tablet Levothyroxine Sodium ND 32528458191 25 MCG Orally Once a day Active 1 tablet on an empty stomach in the morning Amlodipine Besylate ND 46175798601 10 MG Orally Once a day Active 1 tablet Vital Signs Date/Time: Jan 07, 2017 BMI 32.12 Index Weight 170 lbs Height 61 in Temperature 98.2 F Cardiac Monitoring Heart Rate 72 /min Blood Pressure Diastolic 72 mm Hg Blood Pressure Systolic 135 mm Hg Results No Known Results Summary Purpose eClinicalWorks Submission
--- OUTSIDE RECORDS SUMMARY | 2017-11-26 12:40 | XMS REPORT | Continuity of Care Document ---
Author Author [facility] Interface Address Unknown Phone Unavailable Problems Problem Status Onset Date Classification Date Reported Comments Source Cough Active Problem 01/12/2017 Nasim Mcgee Idiopathic pulmonary fibrosis Active Problem 01/12/2017 Nasim Mcgee Medications Medication Details Route Status Patient Instructions Ordering Provider Order Date Source Hydrochlorothiazide 1 tablet in the morning Orally Active 25 MG Orally Three times a Week Agustina Nasim Mcgee Sertraline HCl 1 tablet Orally Active 100 MG Orally Once a day Agustina Nasim Mcgee Levothyroxine Sodium 1 tablet on an empty stomach in the morning Orally Active 25 MCG Orally Once a day Agustina Nasim Mcgee Amlodipine Besylate 1 tablet Orally Active 10 MG Orally Once a day Agustina Nasim Mcgee Allergies, Adverse Reactions, Alerts Substance Category Reaction Severity Reaction type Status Date Reported Comments Source Dilaudid Adverse Reaction itching Adverse Reaction Active 01/07/2017 Nasim Mcgee Immunizations Immunization Date Given Site Status Last Updated Comments Source Results Order Name Results Value Reference Range Date Interpretation Comments Source Vital Signs Vital Sign Value Date Comments Source Weight 170 01/07/2017 Nasim Mcgee Height 61 01/07/2017 Nasim Mcgee Temperature Oral (F) 98.2 F 01/07/2017 Nasim Mcgee Heart Rate 72 01/07/2017 Nasim Mcgee Diastolic (mm Hg) 72 01/07/2017 Nasim Mcgee Systolic (mm Hg) 135 01/07/2017 Nasim Mcgee Encounters Location Location Details Encounter Type Encounter Number Reason For Visit Attending Provider ADM Date DC Date Status Source Procedures Procedure Code Date Perfomer Comments Source
--- OUTSIDE RECORDS SUMMARY | 2017-11-26 12:47 | XMS REPORT | Clinical Summary ---
Author Author [facility] Organization [facility] Address Unknown Phone Unavailable Care Team Providers Care Manager Mining Name Role Phone Jesus Abad MD PCP [...] maddison Take by mouth daily. 12/18/19 Discontin [id number] 17 ued (CITRACAL PLUS MAGNESIUM) 250-40-125 mg-mg-unit [...] Muscular deconditioning; KLARISSA (obstructive sleep apnea) 12/17/2016 [facility] Radiology Noble Gan MD IPF (idiopathic pulmonary Encounter fibrosis) 12/17/2016 [facility] Pulmonology Noble Gan MD IPF [...] Taken Blood Pressure 150/81 12/17/2016 12:41 PM [facility] Pulse 87 12/17/2016 12:41 PM [facility] Temperature 36.1 C (97 F) 12/17/2016 12:41 PM [facility] Respiratory Rate 18 12/17/2016 12:41 PM [facility] Oxygen Saturation 97% 12/17/2016 12:41 PM [facility] Inhaled Oxygen - - Concentration Weight 76.6 kg (168 lb 14.4 oz) 12/17/2016 12:41 PM [employer] CHECKER Height 157.5 cm (5' 2") 12/17/2016 12:41 PM [facility] Body Mass Index 30.89 12/17/2016 12:41 PM [facility] CHECKER Plan of Treatment Health Maintenance Due Date Last Done Comments BREAST CANCER SCREENING 1997 COLON CANCER SCREENING 1997 SHINGRIX VACCINE (#1) 1997 ZOSTER VACCINE 2007 PNEUMOCOCCAL 01/23/2012 POLYSACCHARIDE VACCINE AGE 65 AND OVER PNEUMOCOCCAL-13 01/23/2012 INFLUENZA VACCINE 09/11/2017 Procedures Procedure Name Priority Date/Time Associated Diagnosis Comments ARTERIAL BLOOD GAS, Routine 12/17/2016 PULMONARY FUNC DEPT 12:[address] CHEST WO CONTRAST Routine 12/17/2016 IPF (idiopathic pulmonary Results for this 11:45 AM [facility]ER fibrosis) procedure are in the results section. NICOTINE AND METABOLITES, Routine 12/17/2016 Results for this SERUM 8:00 AM [facility] procedure are in the results section. ZZESTIMATED GFR Routine 12/17/2016 Results for this 8:00 AM [facility] procedure are in the results section. COMPREHENSIVE METABOLIC Routine 12/17/2016 Results for this PANEL 8:00 AM [facility] procedure are in the results section. HC COMPLETE BLD COUNT Routine 12/17/2016 Results for this W/AUTO DIFF 8:00 AM [employer] procedure are in the results section. URINE DRUGS OF ABUSE Routine 12/17/2016 IPF (idiopathic pulmonary Results for this SCREEN 8:00 AM [employer] fibrosis) procedure are in the results section. ALCOHOL LEVEL, BLOOD Routine 12/17/2016 IPF (idiopathic pulmonary Results for this 8:00 AM [facility] fibrosis) procedure are in the results section. [...] participate in the care of your patient. [facility]-[id number] Procedure Note Hm Interface, Radiology Results Incoming - 12/17/2016 1:16 [address] [address] CHEST WO CONTRAST CLINICAL INDICATION: J84.112 [...] participate in the care of your patient. [facility]-[id number] Performing Organization Address City/State/Zipcode Phone Number [facility] [address] [place] [address] * Nicotine and metabolites, serum (12/17/2016 8:00 AM) Nicotine <2.0 0.0 - 2.0 ng/mL [facility] DEPARTMENT OF PATHOLOGY AND GENOMIC MEDICINE Cotinine <2.0 0.0 - 2.0 ng/mL [facility] DEPARTMENT OF PATHOLOGY AND GENOMIC MEDICINE 5-GE-nrrqidlf <5.0 0.0 - 5.0 ng/mL [facility] DE[facility] OF Comment: PATHOLOGY AND This test was developed and GENOMIC MEDICINE its performance characteristics determined by the Department of Pathology and Genomic Medicine, [facility]. Serum nicotine and its metabolites cotinine and [id number] are tested by HPLC tandem mass spectrometry. It has not been cleared or approved by FDA. The laboratory is regulated under CLIA as qualified to perform high-complexity testing. This test is used for clinical purposes. It should not be regarded as investigational or for research. Specimen Blood Performing Organization Address [facility] [place] [address] PATHOLOGY AND [facility] MEDICINE * Estimated GFR (12/17/2016 8:00 AM) GFR Non Af Amer 83 mL/min/1.73 m2 [facility] DEPARTMENT OF PATHOLOGY AND GENOMIC MEDICINE GFR Af Amer >90 mL/min/1.73 m2 [facility] DEPART[facility] OF Comment: PATHOLOGY AND Chronic [...] Americans. Specimen Plasma specimen Performing Organization Address [facility] Cent[facility] Phone Number [address] [address] PATHOLOGY AND [place] MEDICINE * Urine drugs of abuse screen (12/17/2016 8:00 AM) Amphetamine screen, urine Negative [facility]PART[facility] OF PATHOLOGY AND GENOMIC MEDICINE Barbiturate screen, urine Negative [facility] OF PATHOLOGY AND GENOMIC MEDICINE Benzodiazepine screen, Negative [facility] DE[facility] OF urine PATHOLOGY AND GENOMIC MEDICINE Cannabinoid screen, urine Negative [facility] OF PATHOLOGY AND GENOMIC MEDICINE Cocaine screen, urine Negative [facility] DE[facility] OF PATHOLOGY AND GENOMIC MEDICINE Methadone metabolite Negative [facility] DE[facility] OF (EDDP), urine PATHOLOGY AND GENOMIC MEDICINE Opiates screen, urine Negative [facility] OF PATHOLOGY AND GENOMIC MEDICINE Oxycodone screen, urine Negative [facility] OF PATHOLOGY AND GENOMIC MEDICINE Phencyclidine screen, Negative [facility] DE[facility] OF urine PATHOLOGY AND GENOMIC MEDICINE Tricyclic screen, urine Negative [facility] DE[facility] OF Comment: PATHOLOGY AND Drug [...] Urine Performing Organization Address City/State/Zipcode Phone Number [facility] DEPARTMENT OF [address] [place] [address] PATHOLOGY AND GENOMIC MEDICINE * CBC with platelet and differential (12/17/2016 8:00 AM) WBC 8.57 4.50 - 11.00 k/uL [facility] DEPART[facility] OF PATHOLOGY AND GENOMIC MEDICINE RBC 4.84 4.20 - 5.50 m/uL [facility] OF PATHOLOGY AND GENOMIC MEDICINE HGB 13.6 12.0 - 16.0 g/dL [facility] OF PATHOLOGY AND GENOMIC MEDICINE HCT 40.7 37.0 - 47.0 % [facility] DE[facility] OF PATHOLOGY AND GENOMIC MEDICINE MCV 84.1 82.0 - 100.0 fL [facility] OF PATHOLOGY AND GENOMIC MEDICINE MCH 28.1 27.0 - 34.0 pg [facility] DEPART[facility] OF PATHOLOGY AND GENOMIC MEDICINE MCHC 33.4 31.0 - 37.0 g/dL [facility] DEPARTMENT OF PATHOLOGY AND GENOMIC MEDICINE RDW - SD 47.4 37.0 - 55.0 fL [facility] DEPARTMENT OF PATHOLOGY AND GENOMIC MEDICINE MPV 10.5 8.8 - 13.2 fL [facility] OF PATHOLOGY AND GENOMIC MEDICINE Platelet count 302 150 - 400 k/uL [facility] OF PATHOLOGY AND GENOMIC MEDICINE Nucleated RBC 0.00 /100 WBC [facility] DEPARTMENT OF PATHOLOGY AND GENOMIC MEDICINE Neutrophils 68.2 39.0 - 69.0 % [facility] OF PATHOLOGY AND GENOMIC MEDICINE Lymphocytes 22.2 (L) 25.0 - 45.0 % [facility] OF PATHOLOGY AND GENOMIC MEDICINE Monocytes 7.4 0.0 - 10.0 % [facility] OF PATHOLOGY AND GENOMIC MEDICINE Eosinophils 1.1 0.0 - 5.0 % [facility] DEPARTMENT OF PATHOLOGY AND GENOMIC MEDICINE Basophils 0.7 0.0 - 1.0 % [facility] DEPARTMENT OF PATHOLOGY AND GENOMIC MEDICINE Immature granulocytes 0.4Comment: "Immature 0.0 - 1.0 % [facility] DEPARTMENT OF granulocytes" (promyelocytes, PATHOLOGY AND myelocytes, metamyelocytes) GENOMIC MEDICINE Performing Organization Address City/[facility]ode Phone Number [address] [address] PATHOLOGY AND GENOMIC MEDICINE * Alcohol level, blood (12/17/2016 8:00 AM) Alcohol None Detected mg/dL [facility] DEPARTMENT OF Comment: PATHOLOGY AND Normal GENOMIC MEDICINE None Detected Legal Intoxication in [place]80 mg/dL (0.08%) - Whole Blood Toxic Concentration 200 mg/dL (0.2%) Potentially Fatal3 50 - 500 mg/dL (0.35 - 0.5%) Alcohol percent None Detected % [facility] DEPARTMENT OF PATHOLOGY AND GENOMIC MEDICINE Specimen Plasma specimen Performing Organization Address [facility] Centercode Phone Number [address] [address] PATHOLOGY AND GENOMIC MEDICINE * Comprehensive metabolic panel (12/17/2016 8:00 AM) Sodium 141 135 - 148 mEq/L [facility] DEPARTMENT OF PATHOLOGY AND GENOMIC MEDICINE Potassium 3.5 3.5 - 5.0 mEq/L [facility] DEPARTMENT OF PATHOLOGY AND GENOMIC MEDICINE Chloride 97 (L) 98 - 112 mEq/L [facility] DE[facility]MENT OF PATHOLOGY AND GENOMIC MEDICINE CO2 29 24 - 31 mEq/L [facility] DEPARTMENT OF PATHOLOGY AND GENOMIC MEDICINE Anion gap 15 7 - 15 mEq/L [facility] DEPART[facility] OF Comment: PATHOLOGY AND Starting from May GENOMIC MEDICINE , anion gap calculation no longer incorporates potassium. Please note the change. BUN 10 8 - 23 mg/dL [facility] DEPARTMENT OF PATHOLOGY AND GENOMIC MEDICINE Creatinine 0.7 0.5 - 0.9 mg/dL [facility]MENT OF PATHOLOGY AND GENOMIC MEDICINE Glucose 102 (H) 65 - 99 mg/dL [facility]PARTMENT OF PATHOLOGY AND GENOMIC MEDICINE Calcium 9.5 8.8 - 10.2 mg/dL [facility] DEPARTMENT OF PATHOLOGY AND GENOMIC MEDICINE Protein 7.9 6.3 - 8.3 g/dL [facility] DEPARTMENT OF Comment: PATHOLOGY AND GENOMIC MEDICINE 4.6-7.0 g/dL 1 week 4.4-7.6 g/dL 7 months-1year 5.1-7.3 g/dL 1-2 years5.6-7 .5 g/dL >3 years6.0-8 .0 g/dL 18-150 6.3-8.3 g/dL Albumin 3.8 3.5 - 5.0 g/dL [facility] DEPARTMENT OF PATHOLOGY AND GENOMIC MEDICINE A/G ratio 0.9 0.7 - 3.8 [facility] DEPARTMENT OF PATHOLOGY AND GENOMIC MEDICINE Alkaline phosphatase 103 35 - 104 U/L [facility] DEPARTMENT OF PATHOLOGY AND GENOMIC MEDICINE AST 35 10 - 35 U/L [facility] DEPARTMENT OF PATHOLOGY AND GENOMIC MEDICINE ALT 25 5 - 50 U/L [facility] DEPARTMENT OF PATHOLOGY AND GENOMIC MEDICINE Total bilirubin 0.3 0.0 - 1.2 mg/dL [facility] DEPARTMENT OF PATHOLOGY AND GENOMIC MEDICINE Specimen Plasma specimen Performing Organization Address City/State[facility] Phone Number [facility] [address] [address] PATHOLOGY AND GENOMIC MEDICINE after 11/19/2016 Insurance Payer Benefit Subscriber ID Type Phone Address Plan / Group [employer] xxxxxxxxx [facility] Transplant Self 1945 Home: [id number] [place] [address]
--- OUTSIDE RECORDS SUMMARY | 2017-11-26 12:47 | XMS REPORT | Clinical Summary ---
Author Author [facility] Address Unknown Phone Unavailable Care Team Providers Care Chemical Operations Specialist Name Role Phone PCP Unavailable Allergies Not [...]
== END 2017-11-25 03:20 | disposition expired | DRG 196 ==
LOC: ER 12:40 → ERHOLD 16:42 → MED/SURG2 11-21 00:11 → ICU 11-23 12:00
PROVIDERS: ADMIT Internal Medicine; ATTEND Internal Medicine
DX: J84.112 Idiopathic pulmonary fibrosis (principal); J18.9 Pneumonia, unspecified organism; J96.91 Respiratory failure, unspecified with hypoxia; Z99.81 Dependence on supplemental oxygen
CPT/HCPCS: 36415; 71046; 71250; 80048; 80053; 81001; 82550; 82553; 83735; 83880; 84100; 84484; 85025; 85610; 85730; 87040; 93005; 94640; 94660; 99284; J0456; J0692; J1644; J2060; J2270; J2405; J2543; J2920; J3370; J3480; J7030